=== PATIENT | male | born 1945 | race Two or more races ===

== ENCOUNTER 2025-08-23 06:37 | Emergency (ER) | payer OTHER ==
[~2025-08-23] VITALS: Ht 167.6 cm; Wt 78.9 kg
[~2025-08-23 06:37] MED LIST: FINASTERIDE; LIPITOR 10MG; LOSARTAN POTASS50 MG; TAMS0.4C; TOPROL XL50 M1
[2025-08-23] MEDS ORDERED: GUAIFENESIN 200 MG/10 ML BLIST.PACK PO STA (07:48)
[2025-08-23] MEDS ORDERED: GUAIFENESIN 200 MG/10 ML BLIST.PACK PO ONE (07:54)
[2025-08-23] MEDS ORDERED: 0.9 % SODIUM CHLORIDE 1,000 ML IV ONE (08:00)
[2025-08-23] MEDS ORDERED: ALBUTEROL SULFATE 3 ML/2.5 MG AMPUL.NEB IH SCH (08:00)
[2025-08-23] MEDS ORDERED: ALBUTEROL SULFATE 3 ML/2.5 MG AMPUL.NEB IH ONE (08:19)
[2025-08-23 08:35] LABS: BASO % 0.1 % (0.1-1.2); EOS # 0.00 (0.04-0.54); EOS % 0.0 % (0.7-7.0); LYMPH # 0.95 (1.18-3.74); LYMPH % 9.3 % (19.3-53.1); MEAN PLATELET VOLUME 10.90 fl (9.4-12.4); MONO # 0.13 (0.24-0.82); MONO % 1.3 % (4.7-12.5); NEUT # 9.10 (1.56-6.13); NEUT % 88.8 % (34.0-71.1); RED CELL DISTRIBUTION WIDTH 13.2 % (11.6-14.4)
[2025-08-23 09:00] LABS: ABG PH 7.406 (7.35-7.45); ABG PO2 67.0 mmHg (80-100)
[2025-08-23 09:01] LABS: BICARBONATE 21.6 mmol/l (23-25); o2 21 %
[2025-08-23 09:05] LABS: ALT/SGPT 44.0 U/L (12-78); AST/SGOT 21.0 U/L (15-37); BILIRUBIN TOTAL 0.72 mg/dL (0.3-1.2); BUN CREA RATIO 18.0 (7.0-25.0); CREATININE SERUM 1.31 mg/dL (0.70-1.30); GFR 52.92; GLOBULINA 4.4 G/DL (2.4-3.5); GLUCOSE FASTING 146.0 mg/dL (65-100); OSMOLALITY SERUM 284.0 MOSM/KG (275-295)
[2025-08-23 09:35] LABS: URINE APPEARANCE Clear; URINE BILIRRUBIN Negative (NEGATIVE); URINE BLOOD Negative; URINE COLOR Yellow; URINE KETONE Trace (NEGATIVE); URINE LEUKOCYTE Negative; URINE NITRATE Negative; URINE PROTEIN Negative (NEGATIVE); URINE UROBILINOGEN 1.0 E.U./dl
[2025-08-23 09:40] LABS: URINE RBC 2.4 uL (0.0-20.8); URINE WBC 3.3 uL (0.0-23.2)
[2025-08-23 09:47] LABS: URINE BACTERIA 0 uL (0.0-1933); URINE CAST 0.29 uL (0.0-1.40); URINE EPITHELIAL CELLS 0.9 uL (0.0-38.8); URINE GLUCOSE >=1000 MG/DL (NEGATIVE)
[2025-08-23 10:18] LABS: COVID-19 AG NEGATIVE (NEGATIVE)
== END 2025-08-23 11:13 | disposition home or self-care (01) ==
LOC: ER 06:37
PROVIDERS: General Practice
DX: B34.9 Viral infection, unspecified (principal); R05.9 Cough, unspecified; R06.02 Shortness of breath; R50.9 Fever, unspecified; Z20.822 Contact with and (suspected) exposure to COVID-19; I10 Essential (primary) hypertension
CPT/HCPCS: 36415; 71046; 82803; 93005; 94640; 96365; 96366; 99283; J7030

== ENCOUNTER → 2025-08-31 08:01 | Outpatient (CLI) | payer OTHER ==
[2025-08-18 11:41] VITALS: BP 130/83
[~2025-08-31] VITALS: Ht 167.6 cm; Wt 78.9 kg
[~2025-08-31 08:01] MED LIST changes: +AMOX-CLAV 875-1 EACH PO; +COLACE100 MG PO; +GABAPENTIN100 M2 PO; +MEDROLPACK PO; +NEURONTIN800 MG PO; +ONDANSETRON ODT8 MG PO; +PERCOCET 5-3251 EACH PO; +TAMS0.4C PO
== END | disposition home or self-care (01) ==
LOC: SURH 08-23 06:00 → O/R 08-23 06:00 → EDSTATUS 08-23 10:15 → SURH 08-23 10:15 → O/R 08-23 11:10 → LAB 08:01 → O/R 09-01 10:45
PROVIDERS: ATTEND Orthopaedic Surgery Orthopaedic Surgery of the Spine
DX: M48.062 Spinal stenosis, lumbar region with neurogenic claudication (principal); M51.360 Other intervertebral disc degeneration, lumbar region with discogenic back pain only; M41.56 Other secondary scoliosis, lumbar region; M96.1 Postlaminectomy syndrome, not elsewhere classified; U07.1 COVID-19; Z03.818 Encounter for observation for suspected exposure to other biological agents ruled out; Z20.828 Contact with and (suspected) exposure to other viral communicable diseases

== ENCOUNTER 2025-09-23 09:57 | Inpatient (IN) | payer OTHER ==
[~2025-09-23] VITALS: Ht 167.6 cm; Wt 78.0 kg
[~2025-09-23 09:57] MED LIST changes: -AMOX-CLAV 875-1 EACH PO; -COLACE100 MG PO; -GABAPENTIN100 M2 PO; -MEDROLPACK PO; -NEURONTIN800 MG PO; -ONDANSETRON ODT8 MG PO; -PERCOCET 5-3251 EACH PO; -TAMS0.4C PO
[2025-09-23] MEDS ORDERED: TAMS0.4C PO (10:17)
[2025-09-23 11:05] LABS: COVID-19 AG NEGATIVE (NEGATIVE)
[2025-09-27] MEDS ORDERED: PERCOCET 5-3251 EACH PO (07:58)
[2025-09-27] MEDS ORDERED: MEDROLPACK PO (07:59)
[2025-09-27] MEDS ORDERED: ONDANSETRON ODT8 MG PO (07:59)
[2025-09-27] MEDS ORDERED: AMOX-CLAV 875-1 EACH PO (07:59)
[2025-09-27] MEDS ORDERED: PROMETHAZINE HCL 50 MG/ML AMPUL IM PRN (08:00)
[2025-09-27] MEDS ORDERED: NEURONTIN800 MG PO (08:00)
[2025-09-27] MEDS ORDERED: COLACE100 MG PO (08:00)
[2025-09-27] MEDS ORDERED: GABAPENTIN100 M2 PO (08:00)
[2025-09-27] MEDS ORDERED: 0.9 % SODIUM CHLORIDE 1,000 ML IV SCH (08:00)
[2025-09-27] MEDS ORDERED: ENALAPRILAT DIHYDRATE 1.25 MG/ML VIAL IV PRN (08:00)
[2025-09-27] MEDS ORDERED: TAMSULOSIN HCL 0.4 MG CAP PO SCH (09:00)
[2025-09-27] MEDS ORDERED: CEFAZOLIN SODIUM 1,000 MG in 0.9 % SODIUM CHLORIDE 50 ML IV SCH (09:00)
[2025-09-27] MEDS ORDERED: DOCUSATE SODIUM 100MG CAP PO SCH (09:00)
[2025-09-27] MEDS ORDERED: VANCOMYCIN HCL 1,000 MG VIAL IV SCH (09:00)
[2025-09-27] MEDS ORDERED: METHYLPREDNISOLONE SOD SUCC 125 MG VIAL IV SCH (09:00)
[2025-09-27] MEDS ORDERED: MORPHINE SULFATE 4 MG/ML CARTRIDGE IV SCH (09:00)
[2025-09-27] MEDS ORDERED: ISOPROPYL ALCOHOL 30 ML OUNCE TOP ONE (11:15)
[2025-09-27] MEDS ORDERED: CEFAZOLIN SODIUM 1,000 MG VIAL IV ONE (11:15)
[2025-09-27] MEDS ORDERED: VANCOMYCIN HCL 1,000 MG VIAL IR ONE (11:15)
[2025-09-27] MEDS ORDERED: VANCOMYCIN HCL 1,000 MG VIAL IV ONE (11:15)
[2025-09-27] MEDS ORDERED: METHYLPREDNISOLONE ACETATE 80 MG/ML VIAL IM ONE (11:15)
[2025-09-27] MEDS ORDERED: VANCOMYCIN HCL 1,000 MG VIAL SPEPROC ONE (11:15)
[2025-09-27 18:16] VITALS: BP 174/95; O2SAT 91
[2025-09-27] MEDS ORDERED: LOSARTAN POTASSIUM 50 MG TABLET PO NR (20:00)
[2025-09-27] MEDS ORDERED: ACETAMINOPHEN 500 MG GEL..CAP PO SCH (20:00)
[2025-09-27] MEDS ORDERED: METOPROLOL SUCCINATE 50 MG TAB.SR.24H PO NR (20:00)
[2025-09-27 20:37] VITALS: BP 170/105; O2SAT 95
[2025-09-27] MEDS ORDERED: GABAPENTIN 800 MG TABLET PO SCH (21:00)
[2025-09-28] VITALS (7 sets, daily range): BP systolic 117–150; BP diastolic 69–83; O2SAT 89–99
[2025-09-28] MEDS ORDERED: SODIUM CHLORIDE 0.45 % 1,000 ML IV SCH
[2025-09-28] MEDS ORDERED: OxyCODONE HCL 5 MG TABLET (ROXICODONE) PO PRN (06:01)
[2025-09-28 06:32] LABS: BASO % 0.1 % (0.1-1.2); EOS # 0.00 (0.04-0.54); EOS % 0.0 % (0.7-7.0); LYMPH # 0.90 (1.18-3.74); LYMPH % 7.4 % (19.3-53.1); MEAN PLATELET VOLUME 11.90 fl (9.4-12.4); MONO # 0.41 (0.24-0.82); MONO % 3.4 % (4.7-12.5); NEUT # 10.82 (1.56-6.13); NEUT % 88.8 % (34.0-71.1); RED CELL DISTRIBUTION WIDTH 13.3 % (11.6-14.4)
[2025-09-28 06:58] LABS: BUN CREA RATIO 21.0 (7.0-25.0); CREATININE SERUM 0.96 mg/dL (0.70-1.30); GFR 75.75; GLUCOSE FASTING 160.0 mg/dL (65-100); OSMOLALITY SERUM 285.0 MOSM/KG (275-295)
[2025-09-28] MEDS ORDERED: METOPROLOL SUCCINATE 50 MG TAB.SR.24H PO SCH (09:00)
[2025-09-28] MEDS ORDERED: LOSARTAN POTASSIUM 50 MG TABLET PO SCH (09:00)
[2025-09-29 00:12] VITALS: BP 132/79; O2SAT 95
[2025-09-29 01:00] VITALS: O2SAT 87
[2025-09-29 06:07] VITALS: O2SAT 90
[2025-09-29 08:29] VITALS: BP 142/78; O2SAT 98
[2025-09-29 09:32] VITALS: O2SAT 97
[2025-09-29 16:33] VITALS: O2SAT 98
== END 2025-09-29 17:46 | disposition home or self-care (01) | DRG 428 ==
LOC: SURG 09-27 06:00 → O/R 09-27 06:00 → SURG 09-27 15:25
PROVIDERS: ADMIT Orthopaedic Surgery Orthopaedic Surgery of the Spine; ATTEND Orthopaedic Surgery Orthopaedic Surgery of the Spine
PROC: 0SG10K1 Fusion of 2 or more Lumbar Vertebral Joints with Nonautologous Tissue Substitute, Posterior Approach, Posterior Column, Open Approach (ICD-10-PCS; 2025-09-27)
PROC: 0ST20ZZ Resection of Lumbar Vertebral Disc, Open Approach (ICD-10-PCS; 2025-09-27)
PROC: 0QB30ZX Excision of Left Pelvic Bone, Open Approach, Diagnostic (ICD-10-PCS; 2025-09-27)
PROC: 07DR0ZZ Extraction of Iliac Bone Marrow, Open Approach (ICD-10-PCS; 2025-09-27)
PROC: 4A1104G Monitoring of Peripheral Nervous Electrical Activity, Intraoperative, Open Approach (ICD-10-PCS; 2025-09-27)
PROC: 0SG10A0 Fusion of 2 or more Lumbar Vertebral Joints with Interbody Fusion Device, Anterior Approach, Anterior Column, Open Approach (ICD-10-PCS; principal; 2025-09-27 10:30)
PROC: 4A12X4Z Monitoring of Cardiac Electrical Activity, External Approach (ICD-10-PCS; 2025-09-28)
DX: M48.062 Spinal stenosis, lumbar region with neurogenic claudication (principal); M51.360 Other intervertebral disc degeneration, lumbar region with discogenic back pain only; M96.1 Postlaminectomy syndrome, not elsewhere classified; M41.56 Other secondary scoliosis, lumbar region

== ENCOUNTER 2025-10-12 15:43 | Emergency (ER) | payer OTHER ==
[~2025-10-12] VITALS: Ht 167.6 cm; Wt 78.5 kg
[~2025-10-12 15:43] MED LIST changes: +AMOX-CLAV 875-1 EACH PO; +COLACE100 MG PO; +GABAPENTIN100 M2 PO; +MEDROLPACK PO; +NEURONTIN800 MG PO; +ONDANSETRON ODT8 MG PO; +PERCOCET 5-3251 EACH PO; +TAMS0.4C PO
[2025-10-12 15:54] VITALS: BP 98/56; O2SAT 100
[2025-10-12] MEDS ORDERED: KETOROLAC TROMETHAMINE 30 MG VIAL IV ONE (16:00)
[2025-10-12] MEDS ORDERED: KETOROLAC TROMETHAMINE 30 MG VIAL ONE (17:21)
[2025-10-12 17:43] LABS: BASO % 0.4 % (0.1-1.2); EOS # 0.14 (0.04-0.54); EOS % 1.3 % (0.7-7.0); LYMPH # 1.48 (1.18-3.74); LYMPH % 14.1 % (19.3-53.1); MEAN PLATELET VOLUME 9.80 fl (9.4-12.4); MONO # 1.21 (0.24-0.82); MONO % 11.5 % (4.7-12.5); NEUT # 7.59 (1.56-6.13); NEUT % 72.2 % (34.0-71.1); RED CELL DISTRIBUTION WIDTH 14.9 % (11.6-14.4)
[2025-10-12] MEDS ORDERED: TRAMADOL HCL E100 MG PO (18:10)
[2025-10-12 18:20] LABS: ALT/SGPT 33.0 U/L (12-78); AST/SGOT 22.0 U/L (15-37); BILIRUBIN TOTAL 0.6 mg/dL (0.3-1.2); BUN CREA RATIO 17.0 (7.0-25.0); CREATININE SERUM 1.27 mg/dL (0.70-1.30); GFR 54.85; GLOBULINA 3.3 G/DL (2.4-3.5); GLUCOSE FASTING 126.0 mg/dL (65-100); OSMOLALITY SERUM 278.0 MOSM/KG (275-295)
== END 2025-10-12 18:18 | disposition home or self-care (01) ==
LOC: ER 15:43
PROVIDERS: General Practice
DX: M54.50 Low back pain, unspecified (principal); Z98.1 Arthrodesis status; R53.1 Weakness; I10 Essential (primary) hypertension
CPT/HCPCS: 36415; 72131; 96365; 99284; J1885